=== PATIENT | male | born 1960 | race Caucasian/White ===

== ENCOUNTER 2021-09-19 13:59 | Observation (INO) | payer OTHER, SELFPAY ==
[2021-09-19] VITALS (16 sets, daily range): BP systolic 101–165; BP diastolic 62–93; PULSE 72–94; RESP 15–20; TEMP 37.1–39.7; O2SAT 94–100
--- NOTE | ~2021-09-19 | CT_ITS ---
EXAMINATION: CT abdomen pelvis w con DATE: 09/19/2021 14:53 INDICATION: Lower abdominal pain, nausea and diarrhea TECHNIQUE: Computed tomography (CT) of the abdomen and pelvis was performed with 100 cc Omnipaque 350 intravenous contrast. The dose-length product was 736.79 mGy-cm. Automated exposure control and iter ative reconstruction technique were employed. COMPARISON: None. FINDINGS: Lung bases are unremarkable. Heart size normal. No significant pleural or pericardial effus ion. There is an abnormally thickened enhancing appendix with surrounding fluid and phlegmonous jefferson e, consistent with acute appendicitis. The appendix measures 1.4 cm transversely. There are bilateral renal cysts. Fatty infiltration of the liver. The spleen, pancreas, adrenal glands are unremarkable. Gallbladder i s present. Nonobstructive bowel gas pattern. There is residual contrast in the bowel. Mild lower thor acic and lumbar spondylosis. IMPRESSION: 1. Acute uncomplicated appendicitis. Reviewed, dictated and finalized at location A. ER BLOCK CUTTER
--- NOTE | 2021-09-19 14:09 | ECG_ITS ---
Measurements Intervals [place] Rate: 65 P: 20 NM: 181 QRS: 7 QRSD: 113 T: 17 QT: 393 QTc: 410 Interpretive Statements SINUS RHYTHM INTRAVENTRICULAR CONDUCTION DELAY BASELINE ARTIFACT- II, III, AVF BORDERLINE ECG Electronically Signed On 09-19-2021 15:54:19 PET [employer]ER by Paresh Mejía D.O.
--- NOTE | 2021-09-19 14:16 | ED.ABDPAIN ---
HPI - Abdominal Pain General Chief Complaint: Abdominal Pain Stated Complaint: abdominal pain Time Seen by Provider: 09/19/21 14:06 Source: patient History of Present Illness HPI narrative: Patient presents with abdominal pain. Pain has been present since last night and getting worse. Does report associated diarrhea and nausea. His pain is crampy, constant, radiates all over his abdomen, appears to improve after diarrhea. He denies any fevers denies any trauma to the area denies any urinary symptoms. Denies prior abdominal surgeries. Related Data Allergies Allergy/AdvReac Type Severity Reaction Status Date / Time No Known Allergies Allergy Verified 09/19/21 14:20 Review of Systems Review of Systems: CONSTITUTIONAL: Denies fever, chills, or sweats. EYES: Denies visual changes, redness, or discharge. ENT: Denies rhinorrhea, congestion, sore throat, or otalgia. CARDIOVASCULAR: Denies chest pain, palpitations, or edema. RESPIRATORY: Denies cough or dyspnea. GASTROINTESTINAL: Reports abdominal pain nausea and diarrhea GENITOURINARY: Denies dysuria or hematuria. SKIN: Denies rash or itching. MUSCULOSKELETAL: Denies back pain, joint pain, or myalgia. NEUROLOGIC: Denies headache, numbness, dizziness, or weakness. PSYCHIATRIC: Denies anxiety or depression. All systems reviewed & are unremarkable except as noted in HPI and below PMFSH Past Medical History Medical History Hypertension Surgical History Surgical History H/O umbilical hernia repair Social History Social History Substance use: never Exam Narrative: GENERAL: Well-appearing, well-nourished, and in mild distress due to pain HEAD: Normocephalic, atraumatic. EYES: PERRLA and EOMI. ENT: Nares clear, no rhinorrhea or epistaxis. Mucous membranes moist. NECK: Supple. No masses. No JVD CHEST: Clear to auscultation. No respiratory distress. No wheezes rales or rhonchi HEART: Regular rate and rhythm. No murmur heard. Normal peripheral pulses. ABDOMEN: Mildly distended abdomen with diffuse tenderness on palpation soft. EXTREMITIES: Normal range of motion. No edema. SKIN: Warm, dry, no rash. NEURO: No focal deficits. Alert and oriented x3. PSYCH: Normal mood and affect. Course Reevaluation(s) Reevaluation #1: Patient is resting more comfortably results reviewed with patient. Will discuss case with surgical team but patient will be admitted for further management. Patient comfortable inpatient plan. Date: 09/19/21 Time: 15:13 Vital Signs Vital signs: Vital Signs Temperature 37.3 C 09/19/21 14:05 Pulse Rate 76 09/19/21 14:05 Respiratory Rate 18 09/19/21 14:05 Blood Pressure 144/84 H 09/19/21 14:05 Pulse Oximetry 100 09/19/21 14:05 Temperature 37.3 C 09/19/21 14:05 Pulse Rate 76 09/19/21 14:05 Respiratory Rate 18 09/19/21 14:05 Blood Pressure 165/93 H 09/19/21 15:16 Pulse Oximetry 100 09/19/21 15:49 MDM - Abdominal Pain MDM Narrative Medical decision making narrative: Patient presents with abdominal pain and diarrhea since last night pain is getting progressively worse so he came to the ER. Patient appears to be in mild distress due to pain. Vital signs with mild hypertension exam with diffuse abdominal pain. Labs and imaging obtained. Labs notable for leukocytosis imaging concerning for uncomplicated diverticulitis. Discussed with surgical team who will admit for further management. Patient is comfortable with inpatient plan. Lab Data Result diagrams: 09/19/21 14:29 09/19/21 14:29 Labs: Lab Results 09/19/21 09/19/21 09/19/21 Range/Units 14:14 14:14 14:29 WBC 15.1 H 15.0 H (4.5-10.0) K/mm3 RBC 4.67 4.41 L (4.6-6.20) M/mm3 Hgb 15.5 14.5 (14.0-18.0) g/dL Hct 43.2 40.3 L (42.0-52.0) % MCV
[2021-09-19 14:26] LABS: Basophils Percent Auto 0.2 % (0.2-1.2); Hematocrit 43.2 % (42.0-52.0); Hemoglobin 15.5 g/dL (14.0-18.0); Immature Granulocyte Absolute 0.06 K/mm3 (0.00-0.031); Immature Granulocyte Percent A 0.4 % (0-0.5); Lymphocytes Percent Auto 7.9 % (18.3-44.2); Mean Corpuscular HGB Conc 35.9 g/dl (32-36); Mean Corpuscular Hemoglobin 33.2 pg (26-34); Mean Corpuscular Volume 92.5 fl (80-100); Mean Platelet Volume 9.8 fl (7.4-10.4); Monocytes Absolute Auto 1.3 K/mm3 (0.1-0.6); Monocytes Percent Auto 8.6 % (2.6-8.5); Neutrophils Absolute Auto 12.5 K/mm3 (1.3-6.7); Neutrophils Percent Auto 82.9 % (45.5-73.1); Platelet Count Result 276 k/mm3 (150-375); Red Blood Count 4.67 M/mm3 (4.6-6.20); Red Cell Distribution Width 12.5 % (11.5-14.5); White Blood Count 15.1 K/mm3 (4.5-10.0)
[2021-09-19] MEDS: MORPHINE SULFATE (*CRX) 4 MG/ML INJ IV PUSH (14:26)
[2021-09-19] MEDS: SODIUM CHLORIDE 0.9% IV 1,000 ML 999 ML IV CONT (14:26)
[2021-09-19] MEDS: ONDANSETRON INJ 4 MG/2 ML VIAL IV PUSH (14:27)
[2021-09-19 14:32] LABS: Alanine Aminotransferase 24 U/L (4-50); Alkaline Phosphatase 107 U/L (38-126); Anion Gap 11 mmol/L (8-16); Aspartate Amino Transferase 30 U/L (17-59); Bilirubin,Total 1.2 mg/dL (0.2-1.3); Blood Urea Nitrogen 13 mg/dL (9-20); Carbon Dioxide 27 mmol/L (22-30); Chloride 96 mmol/L (98-107); Estimated CRCL calculation 76 ml/min; Estimated Glomerular Filt Rate > 60; Glucose 136 mg/dL (65-110); Lipase 26 U/L (23-300); Potassium 3.8 mmol/L (3.4-5.0); Sodium 134 mmol/L (137-145)
[2021-09-19 14:35] LABS: Basophils Percent Auto 0.1 % (0.2-1.2); Hematocrit 40.3 % (42.0-52.0); Hemoglobin 14.5 g/dL (14.0-18.0); Immature Granulocyte Absolute 0.04 K/mm3 (0.00-0.031); Immature Granulocyte Percent A 0.3 % (0-0.5); Lymphocytes Absolute Auto 1.04 K/mm3 (0.9-3.2); Lymphocytes Percent Auto 6.9 % (18.3-44.2); Mean Corpuscular Hemoglobin 32.9 pg (26-34); Mean Corpuscular Volume 91.4 fl (80-100); Mean Platelet Volume 9.7 fl (7.4-10.4); Monocytes Absolute Auto 1.5 K/mm3 (0.1-0.6); Monocytes Percent Auto 10.2 % (2.6-8.5); Neutrophils Absolute Auto 12.4 K/mm3 (1.3-6.7); Neutrophils Percent Auto 82.5 % (45.5-73.1); Platelet Count Result 242 k/mm3 (150-375); Red Blood Count 4.41 M/mm3 (4.6-6.20); Red Cell Distribution Width 12.3 % (11.5-14.5)
[2021-09-19 14:47] LABS: Lactic Acid Reflex 1.6 mmol/L (0.7-2.1)
[2021-09-19 14:48] LABS: Alanine Aminotransferase 21 U/L (4-50); Albumin Level 4.4 g/dL (3.5-5.1); Alkaline Phosphatase 104 U/L (38-126); Anion Gap 8 mmol/L (8-16); Aspartate Amino Transferase 26 U/L (17-59); Bilirubin,Total 1.1 mg/dL (0.2-1.3); Blood Urea Nitrogen 13 mg/dL (9-20); Calcium 9.5 mg/dL (8.4-10.2); Carbon Dioxide 25 mmol/L (22-30); Chloride 100 mmol/L (98-107); Estimated CRCL calculation 76 ml/min; Estimated Glomerular Filt Rate > 60; Glucose 135 mg/dL (65-110); Lipase 25 U/L (23-300); Potassium 3.7 mmol/L (3.4-5.0); Sodium 133 mmol/L (137-145)
[2021-09-19] MEDS: HYDROmorphone HCL INJ (*CRX) 1 MG/ML SYR 0.5 MG IV PUSH (15:09)
[2021-09-19 15:16] LABS: Add Urine Microscopic? YES; Appearance Urine Clear (Clear); Bilirubin Urine Negative (Negative); Blood Urine Negative (Negative); Color Urine Yellow (Yellow); Glucose Urine UA Negative (Negative); Ketones Urine Trace mg/dL (Negative); Leukocyte Esterase Ur Negative LEU/UL (Negative); Mucus Urine Rare /lpf; Nitrate Urine Negative (Negative); Protein Urine Negative (Negative); RBC Urine 0-2 /hpf (0-2); Squamous Epithelial Cell Urine Rare /hpf (Few); Urobilinogen Urine Negative mg/dL (<2.0); WBC Urine 0-3 /hpf
[2021-09-19 15:28] LABS: Specific Grav Ur 1.042 (1.001-1.035)
--- NOTE | 2021-09-19 15:51 | WPDANESEPP ---
Anes - Eval Pre Procedure Procedure: Laparoscopic Appendectomy Date/Time: 09/19/21 15:51 Surgeon: Dr. Birmingham Preop Diagnosis: Acute Appendicitis Pre Op Diagnosis: abdominal pain Patient Data Age: 61 Gender: M Height: 1.83 m Weight: 97.5 kg Last Vital Signs Temp 99.1 F 09/19/21 14:05 Pulse 76 09/19/21 14:05 Resp 18 09/19/21 14:05 BP 144/84 H 09/19/21 14:05 Pulse Ox 100 09/19/21 14:05 Allergies Allergy/AdvReac Type Severity Reaction Status Date / Time No Known Allergies Allergy Verified 09/19/21 14:20 Laboratory Tests 09/19/21 09/19/21 09/19/21 14:14 14:14 14:29 WBC 15.1 K/mm3 H K/mm3 15.0 K/mm3 H K/mm3 (4.5-10.0) (4.5-10.0) RBC 4.67 M/mm3 M/mm3 4.41 M/mm3 L M/mm3 (4.6-6.20) (4.6-6.20) Hgb 15.5 g/dL g/dL 14.5 g/dL g/dL (14.0-18.0) (14.0-18.0) Hct 43.2 % % 40.3 % L % (42.0-52.0) (42.0-52.0) MCV 92.5 fl fl 91.4 fl fl (80-100) (80-100) MCH 33.2 pg pg 32.9 pg pg (26-34) (26-34) MCHC 35.9 g/dl g/dl 36.0 g/dl g/dl (32-36) (32-36) RDW 12.5 % % 12.3 % % (11.5-14.5) (11.5-14.5) Plt Count 276 k/mm3 k/mm3 242 k/mm3 k/mm3 (150-375) (150-375) MPV 9.8 fl fl 9.7 fl fl (7.4-10.4) (7.4-10.4) Immature Gran % (Auto) 0.4 % % 0.3 % % (0-0.5) (0-0.5) Neut % (Auto) 82.9 % H % 82.5 % H % (45.5-73.1) (45.5-73.1) Lymph % (Auto) 7.9 % L % 6.9 % L % (18.3-44.2) (18.3-44.2) [place] % (Auto) 8.6 % H % 10.2 % H % (2.6-8.5) (2.6-8.5) Eos % (Auto) 0.0 % % 0.0 % % (0-4.4) (0-4.4) Baso % (Auto) 0.2 % % 0.1 % L % (0.2-1.2) (0.2-1.2) Lymph # (Auto) 1.20 K/mm3 K/mm3 1.04 K/mm3 K/mm3 (0.9-3.2) (0.9-3.2) [place] # (Auto) 1.3 K/mm3 H K/mm3 1.5 K/mm3 H K/mm3 (0.1-0.6) (0.1-0.6) Eos # (Auto) 0.0 K/mm3 K/mm3 0.0 K/mm3 K/mm3 (0-0.3) (0-0.3) Baso # (Auto) 0.0 K/mm3 K/mm3 0.0 K/mm3 K/mm3 (0.0-0.1) (0.0-0.1) Abs Immat Gran (auto) 0.06 K/mm3 H K/mm3 0.04 K/mm3 H K/mm3 (0.00-0.031) (0.00-0.031) Absolute Neuts (auto) 12.5 K/mm3 H K/mm3 12.4 K/mm3 H K/mm3 (1.3-6.7) (1.3-6.7) Absolute Nucleated RBC 0.0 K/mm3 K/mm3 0.0 K/mm3 K/mm3 (0.0-0.012) (0.0-0.012) Nucleated RBC % 0.0 % % 0.0 % % (0.0-0.2) (0.0-0.2) Sodium 134 mmol/L L mmol/L (137-145) Potassium 3.8 mmol/L mmol/L (3.4-5.0) Chloride 96 mmol/L L mmol/L (98-107) Carbon Dioxide 27 mmol/L mmol/L (22-30) Anion Gap 11 mmol/L mmol/L (8-16) BUN 13 mg/dL mg/dL (9-20) Creatinine 1.00 mg/dL mg/dL (0.7-1.3) Estim Creat Clear Calc 76 ml/min ml/min Estimated GFR > 60 (59 - ) Glucose 136 mg/dL H mg/dL (65-110) Lactic Acid Calcium 10.0 mg/dL mg/dL (8.4-10.2) Total Bilirubin 1.2 mg/dL mg/dL (0.2-1.3) AST 30 U/L U/L (17-59) ALT 24 U/L U/L (4-50) Alkaline Phosphatase 107 U/L U/L (38-126) Total Protein 8.0 g/dL g/dL (6.3-8.2) Albumin 5.0 g/dL g/dL (3.5-5.1) Lipase 26 U/L U/L (23-300) Urine Color Urine Appearance Urine pH Ur Specific [place] Urine Protein Urine Glucose (UA) Urine Ketones Ur Blood (Man) Urine Nitrate Urine Bilirubin Urine Urobilinogen Leukocyte Esterase Rfl Urine RBC Urine WBC Ur Squamous Epith Cells Urine Mucus 09/19/21 09/19/21 09/19/21 14:29 14:29 15:07 WBC RBC Hgb Hct MCV MCH MCHC RDW Plt Count MPV Immature Gran % (Auto) Neut % (Auto) Lymph % (Auto)
--- NOTE | 2021-09-19 16:38 | WPDANESEFPP ---
Anes - Eval Final PreProcedure Day of Procedure 09/19/21 16:38 Patient weight: overweight Heart: regular rate and rhythm Lungs: clear to auscultation Airway: Mallampati scale class II Neurological: alert and oriented Last oral intake: >/= 8 hours ASA classification: II Emergent: yes Anesthetic plan: proceed Anesthesia type and monitoring: general ETT and standard monitoring Results Review: All pre-operative results and documents have been reviewed as part of the pre-operative evaluation. Informed Consent: The patient's anesthetic plan and its attendant risks and benefits were discussed with the patient/family/POA. Questions were solicited and answers provided to the satisfaction of the patient/family/POA.
--- NOTE | 2021-09-19 16:48 | PM.IMHP ---
H&P: HPI History of Present Illness Date/Time: 09/19/21 16:48 The patient is a 61 y/o M presenting to ED c/o lower abd pain R>L over last 24 hours. Pt reports pain started acutely last night and progressively worsened. Pain is now constant, sharp. Pt reports associated nausea, anorexia. Pt denies previous sx. Chief Complaint: acute appendicitis Review of Systems Constitutional: Constitutional: Reports anorexia, Denies chills, Reports fatigue, Denies fever(s), Denies increased appetite, Denies lethargy, Denies malaise, Reports poor appetite, Denies weakness, Denies weight gain and Denies weight loss Eyes: Eyes: Reports no additional eye complaints ENT: Reports system reviewed and no additional complaints, except as documented Cardiovascular: Cardiovascular: Reports no additional cardiovascular complaints Respiratory: Respiratory: Reports no additional respiratory complaints Gastrointestinal: Gastrointestinal: Reports as per HPI, Reports abdominal pain, Denies belching, Denies bloating, Denies change in bowel habits, Denies change in stool character, Denies constipation, Reports GI cramping, Denies early satiety, Denies fecal incontinence, Denies diarrhea, Denies loose stools, Reports nausea and Denies vomiting Genitourinary: Genitourinary: Reports no additional male genitourinary complaints Musculoskeletal: Musculoskeletal: Reports no additional musculoskeletal complaints Integumentary/Breasts: Skin/Breast: Reports system reviewed and no additional complaints, except as docu Neurologic: Reports system reviewed and no additional complaints, except as documented Psychiatric: Psychiatric: Reports no additional psychiatric complaints Endocrine: Endocrine: Reports no additional endocrine complaints Hematologic/Lymphatic: Hematologic/Lymphatic: Reports no additional hematologic/lymphatic complaints Allergic/Immunologic: Allergic/Immunologic: Reports no additional allergic/immunologic complaints [facility] Past Medical History Medical History Hypertension Surgical History Surgical History H/O umbilical hernia repair Social History Social History Substance use: never Meds Home Medications and Allergies Allergies Allergy/AdvReac Type Severity Reaction Status Date / Time No Known Allergies Allergy Verified 09/19/21 14:20 Vital Signs Vital Signs - 24 hr 09/19/21 14:05 09/19/21 14:24 09/19/21 14:25 Temperature 37.3 C Pulse Rate 76 Respiratory Rate 18 Blood Pressure 144/84 H 141/81 H Pulse Oximetry 100 100 100 09/19/21 14:28 09/19/21 14:30 09/19/21 14:31 Temperature Pulse Rate Respiratory Rate Blood Pressure 131/69 127/77 Pulse Oximetry 100 100 100 09/19/21 15:03 09/19/21 15:15 09/19/21 15:16 Temperature Pulse Rate Respiratory Rate Blood Pressure 165/93 H Pulse Oximetry 100 98 96 09/19/21 15:49 Temperature Pulse Rate Respiratory Rate Blood Pressure Pulse Oximetry 100 Exam Const: General: cooperative, well developed, alert, awake, Physically active and acute distress mild Nutritional Appearance: overweight Orientation/consciousness: patient oriented x3 Limitations: no limitations HENMT: Head: normal to inspection, No palpable skull fracture present, normocephalic and atraumatic Ears: hearing grossly normal bilaterally General nose exam: Normal external nose present Face and sinus: normal facial exam Mouth: Yes Normal oral and palatal mucosa present Eyes: General: appearance normal, both eyes and all related structures Pupils: Equal, round and reactive pupils present EOM: EOMs intact bilaterally Neck: Neck: normal visual inspection, full ROM and no lymphadenopathy Chest: Chest palpation & inspection: normal inspection of the chest Resp: Effort & Inspection: normal respiratory effor
[2021-09-19] MEDS: BUPIVACAINE HCL 0.5% PF 30 ML VIAL INFILTRATE (17:24)
[2021-09-19] MEDS: LACTATED RINGERS 1,000 ML 30 ML IV CONT (17:38)
--- NOTE | 2021-09-19 17:46 | P.OP_ITS ---
Procedure Note - Detailed Date of Procedure 09/19/21 Pre-op Diagnosis acute appendicitis Post-op Diagnosis other ( acute perforated appendicitis with intra-abdominal abscess) Procedure Performed laparoscopic appendectomy, washout of intra-abdominal abscess Surgeon Etelvina Birmingham MD Anesthesia general Indications 61-year-old male presenting with severe abdominal pain. Workup including imaging significant for acute appendicitis. Findings Acute perforated appendicitis with intra-abdominal abscess Description of Procedure The patient was taken to the operating room and placed in the supine position. After adequate induction of general anesthesia, the patient was prepped and draped in the normal sterile fashion. A time-out was then done to verify the patient's identity, as well as the procedure being performed. I began by making a 5 mm incision in the infraumbilical region, through this a Veress needle was placed in the peritoneal cavity. CO2 gas was then insufflated and after adequate pneumoperitoneum was achieved the Veress needle was removed. Then placed a 5 mm Optiview trocar under direct visualization into the peritoneal cavity. I then insufflated through this trocar site and the endoscope was placed into the trocar. Under direct visualization, placed 2 further 5 mm suprapubic port as well as an additional 12 mm port in the left lower abdomen. At this point identified the cecum, I retracted the cecum both medially and superiorly allowing me to expose the appendix. The appendix was noted to be very dilated and inflamed especially towards midbody and the tip. There was also noted to be an obvious perforation near the midportion of the appendix. The appendix was noted to be very adherent to the right lateral sidewall as well as the ileum. I was able to bluntly dissect the appendix from these adhesions. At this point, an intra-abdominal abscess was noted. I copiously suctioned out this area and wash this with normal saline. I then was able to locate the base of the appendix with the cecum. I created a window with the [place] dissector between the appendix itself and the mesoappendix. I then transected the mesoappendix with a white vascular staple load. The Endo-CHAD was then reloaded with a blue staple load and I transected the base of the appendix. Once the specimen was completely detached, an endo-pouch was placed into the 12 mm port site and the specimen was removed through the endo-pouch. The appendiceal specimen will be sent to pathology for further review. I then copiously irrigated the right lower quadrant. Hemostasis was noted at both staple lines no other pathology was seen in this area. No other abscess cavities or fluid collections were noted. I then moved the camera to the suprapubic port to check our its port of entry. No iatrogenic injury or other pathology was noted in the upper abdomen. Given the perforation and abscess, I left a IVK drain in the right quadrant coming through the 5 mm suprapubic port. I then closed the 12 mm port site with a Sukhdev code and 0 Vicryl suture under direct visualization. At this point, the abdomen was desufflated and all ports were removed. All port sites were closed with 4 Monocryl subcuticular suture. Dermabond was placed on all wounds. The patient tolerated the procedure well and was extubated in the operating room postop. He will be sent to the recovery room in stable co ndition. Estimated Blood Loss 10 Drains Yes Packing No Pathology yes Complications No immediate complications Condition stable Disposition PACU
--- NOTE | 2021-09-19 18:09 | SUR.PHASEI ---
1750-DR. MANRIQUEZ NOTIIFIED PER ANTHONY CHADWICK, RN RE: VIK DRAIN-INSTRUCTED TO HAVE JENNIFER HUTCHINSON ADVANCE AND REDRESS. [id number], DREW, AND RYSUPER[employer]OR [employer] INSPECTION REPOSITIONED, RESUTURED, REDRESS DRAIN. VIK ACTIVATE TO BULB SUCTION WITH SEROSANGUINEOUS DRAINAGE NOTED IN TUBING.
--- NOTE | 2021-09-19 18:43 | SUR.PHASEI ---
1819- ALLOWED CARTSIDE WITH PATIENT.
--- NOTE | 2021-09-19 19:54 | ADMGEN ---
This patient, Yunior Samuels, was admitted to 2 Medical Room 255-01 @1900 from OR post op pt. Patient/family oriented to hospital policies and general routines including ID bracelet, bed and alarms, visiting hours, pain management, procedures, bathroom and other care routines, personal items, smoking policy, room service/diet, and visiting hours. Information on how to activate the Rapid Response Team has been discussed. Patient/Family are encouraged to report perceived risks to care and to ask questions if they do not understand what they are told or what they should do.
[2021-09-19] MEDS: HYDROcodone/acetaminophen (*CRX) 5-325 MG TABLET 1 TAB PO (20:03)
[2021-09-20] MEDS: HYDROcodone/acetaminophen (*CRX) 5-325 MG TABLET 1 TAB PO ×2 (02:27→06:07)
[2021-09-20 03:28] VITALS: BP 105/58; PULSE 64; RESP 20; TEMP 36.8; O2SAT 97
[2021-09-20 05:29] LABS: Hematocrit 38.3 % (42.0-52.0); Hemoglobin 13.9 g/dL (14.0-18.0); Mean Corpuscular HGB Conc 36.3 g/dl (32-36); Mean Corpuscular Hemoglobin 33.1 pg (26-34); Mean Corpuscular Volume 91.2 fl (80-100); Platelet Count Result 224 k/mm3 (150-375); Red Cell Distribution Width 12.8 % (11.5-14.5); White Blood Count 9.9 K/mm3 (4.5-10.0)
[2021-09-20 05:50] LABS: Anion Gap 9 mmol/L (8-16); Blood Urea Nitrogen 18 mg/dL (9-20); Calcium 8.5 mg/dL (8.4-10.2); Carbon Dioxide 24 mmol/L (22-30); Chloride 95 mmol/L (98-107); Estimated CRCL calculation 55 ml/min; Estimated Glomerular Filt Rate 52; Glucose 130 mg/dL (65-110); Potassium 4.1 mmol/L (3.4-5.0); Sodium 128 mmol/L (137-145)
--- NOTE | 2021-09-20 08:22 | PM.DS ---
DS: Admitting Diagnosis Discharge Date 09/20/2021 Admitting Diagnosis Acute perforated appendicitis DS: Discharge Diagnosis Discharge Diagnosis (1) Acute perforated appendicitis: Code(s): K35.32 - Acute appendicitis with perforation and localized peritonitis, without abscess Status: Acute Assessment and Plan: doing well, continue routine postoperative care and drain care, home with p.o. antibiotics and analgesia, follow-up 1 week for drain removal DS: Summary Hospital Course Reason for hospitalization: acute perforated appendicitis Hospital Course: The patient is a 61-year-old male presented to the emergency department complaining of severe right lower quadrant abdominal pain. Workup in the emergency department, including CT scan, was significant for acute appendicitis. Given this, the patient was admitted to the Surgical Service, made NPO, and started on IV antibiotics. Upon evaluation, the decision was made for urgent appendectomy. The patient was taken to the operating room and laparoscopic appendectomy with washout of intra-abdominal abscess was done on 09/19, please see full operative report for details of that procedure. The patient was then taken back to the floor where he has continued to do well. On postoperative day 1., the patient has tolerated a diet and has been up and ambulating without issue. He has been taught drain care and the plan is to have this removed in the next few days. The patient will be sent home with p.o. analgesia and antibiotics. He is to follow up once he gets back home for drain removal. Status at Discharge Functional status at discharge: independent ambulation Overall status at discharge: patient is progressing back to baseline Time Spent with Patient Time attestation: Total time spent providing and/or coordinating discharge services: Time spent: Less than 30 minutes Exam Const: General: cooperative, comfortable and no acute distress Nutritional Appearance: obese Orientation/consciousness: patient oriented x3 Limitations: no limitations Resp: Effort & Inspection: normal respiratory effort Auscultation: clear to auscultation bilaterally Cardio: Rate: regular rate Rhythm: regular rhythm GI: Inspection: normal to inspection, distended and incision GI Palp: Yes Soft to palpation and Yes Tenderness to palpation present (GI) Other: VIK astudillo s/s output DS: Data Data Completed and Pending Pending studies at discharge: Pending at discharge 09/19/21 17:12 Surgical [PTH] Routine Labs on day of discharge: Labs from last 24 hours 09/20/21 09/20/21 09/19/21 05:11 05:11 15:07 WBC 9.9 RBC 4.20 L Hgb 13.9 L Hct 38.3 L MCV 91.2 MCH 33.1 MCHC 36.3 H RDW 12.8 Plt Count 224 MPV 10.0 Immature Gran % (Auto) Neut % (Auto) Lymph % (Auto) [place] % (Auto) Eos % (Auto) Baso % (Auto) Lymph # (Auto) [place] # (Auto) Eos # (Auto) Baso # (Auto) Abs Immat Gran (auto) Absolute Neuts (auto) Absolute Nucleated RBC Nucleated RBC % Sodium 128 L Potassium 4.1 Chloride 95 L Carbon Dioxide 24 Anion Gap 9 BUN 18 Creatinine 1.40 H Estim Creat Clear Calc 55 Estimated GFR 52 L Glucose 130 H Lactic Acid Calcium 8.5 Total Bilirubin AST ALT Alkaline Phosphatase Total Protein Albumin Lipase Urine Color Yellow Urine Appearance Clear Urine pH 6.0 Ur Specific [place] 1.042 H Urine Protein Negative Urine Glucose (UA) Negative Urine Ketones Trace Ur Blood (Man) Negative Urine Nitrate Negative Urine Bilirubin Negative Urine Urobilinogen Negative Leukocyte Esterase Rfl Negative Urine RBC 0-2 Urine WBC 0-3 Ur Squamous Epith Cells Rare Urine Mucus Rare 09/19/21 09/19/21 09/19/21 14:29 14:29 14:29 WBC 15.0 H RBC 4.41 L Hgb 14.5 Hct 40.3 L MCV 91.4 MCH 32.9 MCHC 36.0 RDW 12
[2021-09-20 09:00] VITALS: BP 111/69; PULSE 69; RESP 18; TEMP 36.8; O2SAT 97
[2021-09-20] MEDS: ENOXAPARIN 40 MG/0.4 ML SYRINGE SUB-Q (09:34)
[2021-09-20] MEDS: oxyCODONE HCL (*CRX) 5 MG TAB IR PO (12:42)
== END 2021-09-20 12:45 | disposition home or self-care (01) ==
LOC: ANHED 14:17 → ANHSURGERY 15:43 → ANH2MED 18:45
PROVIDERS: Admitting Provider Surgery; Emergency Provider Emergency Medicine; Visit Provider Surgery
PROC: 0DTJ4ZZ Resection of Appendix, Percutaneous Endoscopic Approach (ICD-10-PCS; CPT 44970; principal; 2021-09-19 16:30)
DX: K35.33 Acute appendicitis with perforation, localized peritonitis, and gangrene, with abscess (principal); I10 Essential (primary) hypertension
CPT/HCPCS: 44970; 36415; 74177; 80048; 80053; 81001; 83605; 83690; 85025; 85027; 88304; 93005; 96361; 96374; 96375; 99285; A9270; G0378; J0131; J0330; J1170; J1650; J2250; J2270; J2405; J2543; J2704; J2710; J3010; J7030; J7120; Q9967